=== PATIENT | male | born 1950 | race Caucasian/White ===

== ENCOUNTER 2017-10-12 17:25 | Inpatient (IN) | payer MEDICARE ==
[~2017-10-12] VITALS: Ht 170.2 cm; Wt 106.1 kg
--- NOTE | 2017-10-12 17:25 | NUR ---
PT BIBRA FROM HOME TO ER BED 11. PER REPORT, WITNESSED SYNCOPE BY FAMILY. PT STATES HE FEELS " A LITTLE OFF" TODAY WHILE DRIVING FROM [place]. WHILE SITTING, PT WAS WITNESSED BY FAMILY TO HAVE FAINTED. NO FALL. 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 DENIES CHEST PAIN. GOWNED AND PLACED ON MONITOR. STABLE VITALS AWAITING MD GILMAN.
[2017-10-12] MEDS ORDERED: LEVO25TA7 PO (18:12)
[2017-10-12] MEDS ORDERED: LISI-603 PO (18:12)
[2017-10-12] MEDS ORDERED: CHOL100044 PO (18:12)
[2017-10-12] MEDS ORDERED: ASPI-1169 PO (18:12)
[2017-10-12] MEDS ORDERED: UBID100C13 PO (18:12)
[2017-10-12] MEDS ORDERED: LIRA0.6P SQ (18:12)
[2017-10-12] MEDS ORDERED: FINA5TAB11 PO (18:12)
[2017-10-12] MEDS ORDERED: ATOR20TA PO (18:12)
[2017-10-12] MEDS ORDERED: AMLO10TA2 PO (18:12)
[2017-10-12] MEDS ORDERED: NEBI10TA2 PO (18:12)
[2017-10-12] MEDS ORDERED: VIT1CAPS44 PO (18:13)
[2017-10-12] MEDS ORDERED: IV NS 0.9% 1,000 ML BAG IV ONE (18:30)
[2017-10-12 18:41] LABS: BASOPHILS # (AUTO) 0.2 /CMM (0.0-0.2); BASOPHILS % (AUTO) 1.6 % (0.0-2.0); EOSINOPHILS % (AUTO) 0.3 % (0.0-6.0); HEMATOCRIT 43 % (39-51); HEMOGLOBIN 14.5 g/dL (13.5-17.5); LYMPHOCYTES # (AUTO) 1.3 /CMM (0.8-4.8); LYMPHOCYTES % (AUTO) 9.5 % (20.0-44.0); MEAN CORPUSCULAR HEMOGLOBIN 31 PG (26.0-33.0); MEAN CORPUSCULAR HGB CONC 34 g/dl (31.0-36.0); MEAN CORPUSCULAR VOLUME 91 fL (80-96); MONOCYTES # (AUTO) 0.8 /CMM (0.1-1.30); MONOCYTES % (AUTO) 5.8 % (2.0-12.0); NEUTROPHILS # (AUTO) 11.2 /CMM (1.8-8.9); NEUTROPHILS % (AUTO) 82.8 % (43.0-81.0); PLATELET COUNT (AUTO) 252 /CMM (150-450); RED BLOOD CELL COUNT(AUTO) 4.71 MIL/uL (4.5-6.0); WHITE BLOOD COUNT (AUTO) 13.5 K/uL (4.3-11.0)
[2017-10-12] MEDS ORDERED: TRIA1TAB3 PO (18:46)
--- NOTE | 2017-10-12 18:50 | NUR ---
PT TO RADIOLOGY FOR HEAD CT SCAN VIA [facility].
[2017-10-12 18:53] LABS: CALCIUM, SERUM 9.3 mg/dL (8.5-10.1); CARBON DIOXIDE 28 mmol/L (21-32); CHLORIDE 104 mmol/L (98-107); CREATININE 2.2 mg/dL (0.6-1.3); GLUCOSE 102 mg/dL (74-106); POTASSIUM 4.5 mmol/L (3.5-5.1); SODIUM SERUM 137 mmol/L (136-145); UREA NITROGEN, BLOOD 37 mg/dL (7-18)
[2017-10-12 18:54] LABS: INR 0.99 (0.85-1.15)
--- NOTE | 2017-10-12 18:57 | NUR ---
DR REYNA AT BEDSIDE FOR EVAL.
[2017-10-12 18:59] LABS: ALANINE AMINOTRANSFERASE 36 U/L (12-78); ALBUMIN 3.7 g/dL (3.4-5.0); ALKALINE PHOSPHATASE 89 U/L (46-116); ASPARTATE AMINOTRANSFERASE 20 U/L (15-37); BILIRUBIN,DIRECT 0.1 mg/dL (0.0-0.2); BILIRUBIN,TOTAL 0.3 mg/dL (0.2-1.0); TOTAL PROTEIN, SERUM 7.5 g/dL (6.4-8.2); TROPONIN I < 0.017 ng/mL (0.00-0.056)
[2017-10-12] MEDS ORDERED: TAMS-12 PO (19:04)
[2017-10-12] MEDS ORDERED: IV NS 0.9% 1,000 ML IV PRN (20:18)
[2017-10-12 20:30] VITALS: BP 117/70
[2017-10-12] MEDS ORDERED: ZOLPIDEM TARTRATE 5 MG TABLET PO PRN (20:30)
[2017-10-12] MEDS ORDERED: Z GUARD REMEDY 2 OZ OINT TP PRN (20:30)
[2017-10-12] MEDS ORDERED: Medication Not On Formulary EA (Liraglutide (Victoza) 1.8 MG) SQ SCH (20:30)
[2017-10-12] MEDS ORDERED: ACETAMINOPHEN 325 MG TABLET PO PRN (20:30)
[2017-10-12] MEDS ORDERED: HYDROCODONE/APAP 5/325MG 1 EACH TABLET PO PRN (20:30)
[2017-10-12] MEDS ORDERED: MAG HYDROX/AL HYDROX/SIMETH 30 ML UDC PO PRN (20:30)
[2017-10-12] MEDS ORDERED: ONDANSETRON HCL/PF 4 MG/2 ML VIAL IVP PRN (20:30)
[2017-10-12] MEDS ORDERED: MAGNESIUM HYDROXIDE 30 ML UDC PO PRN (20:30)
--- NOTE | 2017-10-12 20:30 | NUR ---
RN NOTES RECEIVED PATIENT FROM ER FOR DX SYNCOPE. PATIENT AO X 3, ABLE TO MAKE NEEDS KNOWN. AMBULATORY. CONTINENT OF B AND B. NO ACUTE DISTRESS NOTED. DENIES ANY PAIN AT THIS TIME. SINUS RHYTHM WITH HR 83. IV SITE PATENT, INTACT; FLUSHED. SKIN INTACT. ROOM AND UNIT ORIENTATION GIVEN. SAFETY REMINDERS GIVEN. ON LOW BED WITH BILATERAL UPPER SIDE RAILS UP. CALL MCCANN WITHIN EASY REACH. WILL CONTINUE TO MONITOR.
[2017-10-12] MEDS ORDERED: AMLODIPINE BESYLATE 10 MG TABLET PO SCH (21:00)
[2017-10-12] MEDS: ASPIRIN 81 MG TAB.CHEW PO SCH (21:00)
[2017-10-12] MEDS ORDERED: ENOXAPARIN SODIUM 40 MG/0.4 ML DISP.SYRIN SQ SCH (21:00)
[2017-10-12 21:30] VITALS: BP 117/70
[2017-10-13] VITALS: BP 104/68
[2017-10-13 00:26] VITALS: BP 104/68
[2017-10-13 04:00] VITALS: BP 110/70
--- NOTE | 2017-10-13 06:30 | NUR ---
RN NOTES PATIENT ASLEEP, EASILY AROUSABLE. RESPIRATIONS EVEN. NO SIGNS OF PAIN NOTED. DUE MEDS GIVEN WITH NO ASE NOTED. NEEDS ATTENDED. SAFETY PRECAUTIONS AND COMFORT MEASURES IN PLACE. WILL GIVE REPORT TO DAY SHIFT FOR CONTINUITY OF CARE.
[2017-10-13] MEDS ORDERED: LEVOTHYROXINE SODIUM 25 MCG TABLET PO SCH (07:30)
[2017-10-13 07:36] LABS: BASOPHILS % (AUTO) 0.5 % (0.0-2.0); EOSINOPHILS # (AUTO) 0.1 /CMM (0.0-0.7); EOSINOPHILS % (AUTO) 0.9 % (0.0-6.0); HEMATOCRIT 41 % (39-51); HEMOGLOBIN 13.9 g/dL (13.5-17.5); LYMPHOCYTES # (AUTO) 2.1 /CMM (0.8-4.8); LYMPHOCYTES % (AUTO) 23.9 % (20.0-44.0); MEAN CORPUSCULAR HEMOGLOBIN 32 PG (26.0-33.0); MEAN CORPUSCULAR HGB CONC 34 g/dl (31.0-36.0); MEAN CORPUSCULAR VOLUME 92 fL (80-96); MONOCYTES # (AUTO) 0.6 /CMM (0.1-1.30); MONOCYTES % (AUTO) 7.3 % (2.0-12.0); NEUTROPHILS # (AUTO) 5.9 /CMM (1.8-8.9); NEUTROPHILS % (AUTO) 67.4 % (43.0-81.0); PLATELET COUNT (AUTO) 206 /CMM (150-450); RDW COEFFICIENT OF VARIATION 15.1 (11.5-15.0); WHITE BLOOD COUNT (AUTO) 8.8 K/uL (4.3-11.0)
[2017-10-13 07:50] LABS: ALBUMIN 3.6 g/dL (3.4-5.0); BILIRUBIN,TOTAL 0.4 mg/dL (0.2-1.0); CALCIUM, SERUM 8.9 mg/dL (8.5-10.1); CREATININE 1.6 mg/dL (0.6-1.3); MAGNESIUM 2.4 mg/dL (1.8-2.4); PHOSPHORUS 3.9 mg/dL (2.5-4.9); POTASSIUM 4.2 mmol/L (3.5-5.1); TOTAL PROTEIN, SERUM 7.3 g/dL (6.4-8.2)
--- NOTE | 2017-10-13 07:58 | NUR ---
CUTTER HOT KNIFE OPENING NOTES PT RECEIVED A&0X3 RESTING IN BED WITH FAMILY AT BEDSIDE. TELE: SR. PT TOLERATING ROOM AIR AND DENIES SOB. PT REPORTS NO PAIN. PT WITH IVC AT L HAND G#20 INTACT AND OPERATIONAL.PT BED IN LOWEST LOCKED POSITION WITH [id number] AND CALL MCCANN WITHIN REACH. PT BRIEFED ON TODAY'S POC AND IS WITHOUT CONCERN OR COMPLAINT AT THIS TIME.
[2017-10-13 07:59] LABS: THYROID STIMULATING HORMONE 2.121 uIU/mL (0.358-3.74)
[2017-10-13] MEDS: ASPIRIN 81 MG TAB.CHEW PO SCH (08:42)
[2017-10-13 08:48] VITALS: BP 121/70
[2017-10-13 08:56] LABS: ABG BASE EXCESS -3.2 mmol/L; ABG OXYGEN SATURATION 95.6 % (92.0-98.5); ABG PCO2 35.5 mmHg (35.0-45.0); ABG PO2 88.2 mmHg (75.0-100.0); COHb 0.3 % (0.5-1.5); MetHb 0.8 % (0.0-1.5); O2Hb 94.5 % (94.0-97.0); SITE, ABG Right Radial; VENT MODE, BG ROOM AIR
[2017-10-13] MEDS ORDERED: LISINOPRIL (20MG) 20 MG TABLET PO SCH (09:00)
[2017-10-13] MEDS ORDERED: CHOLECALCIFEROL 1,000 UNIT TABLET (VIT D3) PO SCH (09:00)
[2017-10-13] MEDS ORDERED: ATORVASTATIN 10 MG TABLET PO SCH (09:00)
[2017-10-13] MEDS ORDERED: FINASTERIDE (5 MG) 5 MG TABLET PO SCH (09:00)
[2017-10-13] MEDS ORDERED: TAMSULOSIN 0.4 MG CAP.SR.24H PO SCH (09:00)
--- NOTE | 2017-10-13 09:00 | NUR ---
SORAIDA. TELE D/C PER .
[2017-10-13] MEDS ORDERED: IV NS 0.9% 1,000 ML IV PRN (09:22)
[2017-10-13 09:30] VITALS: BP_SYST 114; BP_SYST 119; BP_SYST 124; BP_DIAS 71; BP_DIAS 72
[2017-10-13 10:00] VITALS: BP 121/70
[2017-10-13] MEDS ORDERED: LISI10TA5 PO (11:40)
--- NOTE | 2017-10-13 15:00 | NUR ---
MSRN CLOSING NOTES. PT PREPARED FOR D/C PER MD. PT TOLERATING ROOM AIR WITHOUT SOB, PT DENIES PAIN. PT IVC REMOVED AND NAD AT SITE. PT WITH ALL BELONGINGS AND DOCUMENT SIGNED. PT BRIEFED ON SOH D/C PACKET AND IS VERBALIZING UNDERSTANDING OF MATERIAL AND MEDICATION CHANGES WITH RESOURCES AND INTENT TO FOLLOW POC. PT WITH IMAGING CD PER MD. PT WITHOUT CONCERN OR COMPLAINT AT THIS TIME. PT LEFT WITH PATRICIO.
== END 2017-10-13 14:25 | disposition home or self-care (01) | DRG 73 ==
LOC: ER 17:27 → TELE 20:20 → MED 10-13 09:12
PROVIDERS: ADMIT Internal Medicine; ATTEND Internal Medicine
DX: G90.8 Other disorders of autonomic nervous system (principal); N17.0 Acute kidney failure with tubular necrosis; I25.10 Atherosclerotic heart disease of native coronary artery without angina pectoris; E11.9 Type 2 diabetes mellitus without complications; E66.9 Obesity, unspecified; Z68.36 Body mass index [BMI] 36.0-36.9, adult; E03.9 Hypothyroidism, unspecified; E04.1 Nontoxic single thyroid nodule; E78.5 Hyperlipidemia, unspecified; I10 Essential (primary) hypertension; Z95.1 Presence of aortocoronary bypass graft; I95.2 Hypotension due to drugs; T50.995A Adverse effect of other drugs, medicaments and biological substances, initial encounter; Y92.009 Unspecified place in unspecified non-institutional (private) residence as the place of occurrence of the external cause; N40.0 Benign prostatic hyperplasia without lower urinary tract symptoms
CPT/HCPCS: 36415; 36600; 70450-TC; 71045-TC; 80048-TC; 80053-TC; 80061-TC; 80076-TC; 82803-TC; 82962-TC; 83735-TC; 84100-TC; 84443-TC; 84484-TC; 85025-TC; 85378-TC; 85730-TC; 87081-TC; 93307-TC; A4606; J1650; J7030; Z7610